=== PATIENT | male | born 1930 | race Caucasian/White ===

== ENCOUNTER → 2019-03-14 | Outpatient (CLI) | payer MEDICARE ==
--- NOTE | 2019-03-14 15:13 | XR ---
EXAMINATION TYPE: XR chest 2V DATE OF EXAM: 03/14/2019 COMPARISON: NONE HISTORY: Pneumonia TECHNIQUE: Frontal and lateral views of the chest are obtained. FINDINGS: There is no focal air space opacity, pleural effusion, or pneumothorax seen. The cardiac silhouette size is within normal limits. Interstitium is prominent at the lung bases. Aorta is dens e. Prominent lung volume may be indicative of underlying COPD. There is bronchial wall thickening. Th e osseous structures are intact. IMPRESSION: Interstitial lung disease, correlate for bronchitis, reactive airways disease.
== END | disposition home or self-care (01) ==
LOC: RADXRMAIN 14:43
PROVIDERS: ATTEND Family Medicine
DX: J84.9 Interstitial pulmonary disease, unspecified (principal); J40 Bronchitis, not specified as acute or chronic
CPT/HCPCS: 71046

== ENCOUNTER → 2019-03-22 | Outpatient (CLI) | payer OTHER ==
[2019-03-22 17:14] LABS: African American GFR (CKD) >90 (>60 ml/min/1.73 sqM); Blood Urea Nitrogen 13 mg/dL (9-20)
--- NOTE | 2019-03-24 11:51 | CT ---
EXAMINATION TYPE: CT chest w con DATE OF EXAM: 03/22/2019 COMPARISON: Chest x-ray dated 03/14/2019 HISTORY: Pneumonia. CT DLP: 363.2 mGycm. Automated Exposure Control for Dose Reduction was Utilized. TECHNIQUE: CT scan of the thorax is performed following with IV Contrast, patient injected with 100m l mL of Isovue 300. FINDINGS: LUNGS: Peripheral basilar predominant reticular opacities and groundglass opacities are seen without current honeycombing. Interlobular septal thickening is seen throughout. 1.3 x 1.0 cm nodule is seen adjacent to the right lower lobe segmental pulmonary arteries and interlo bar fissure located in the right middle lobe on series 4 image 36. Given its location near the right infrahilar and appearance this could represent a prominent lymph node however pulmonary nodule is pos sible. There is no pleural effusion or pneumothorax seen. The tracheobronchial tree is patent. MEDIASTINUM: There are prominent mediastinal lymph nodes such as in the right paratracheal space nico uring 1.2 cm in short axis, and the left paratracheal space measuring 9 mm in short axis, in the subc arinal region measuring 1.3 cm in short axis, and possibly in the right infrahilar as discussed above .. The heart is enlarged. No pericardial effusion is seen. Small hiatal hernia is present. Moderate c oronary calcifications are noted. Ascending thoracic aorta is upper limits of normal size measuring 3 .8 cm. OTHER: Left upper pole renal cyst is incidentally seen. Moderate multilevel degenerative changes of t he spine are noted. IMPRESSION: 1. Right middle lobe pulmonary nodule versus infrahilar lymph node given multiple other prominent and mildly enlarged mediastinal lymph nodes. Short-term follow-up is recommended in 3 months to reassess this lesion. PET/CT or endobronchial biopsy could also be considered. 2. 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
== END | disposition home or self-care (01) ==
LOC: RADCTMAIN 16:28
PROVIDERS: ATTEND Physician Assistant
DX: J18.9 Pneumonia, unspecified organism (principal)
CPT/HCPCS: 36415; 71260; 82565; 84520

== ENCOUNTER → 2019-04-20 | Outpatient (CLI) | payer MEDICARE ==
--- NOTE | 2019-04-24 14:47 | PE ---
EXAMINATION TYPE: PET CT fusion skull to thigh DATE OF EXAM: 04/20/2019 COMPARISON: Chest CT dated 03/22/2019 HISTORY: Lung mass TECHNIQUE: Following the intravenous administration of 10.19 mCi of F-18 FDG, whole body images are performed from the skull base to the midthigh. Images are reviewed on the computer in the coronal, a xial, and sagittal planes. Reconstructed rotating images are created on independent workstation and reviewed on the computer. A localization and attenuation correction CT is performed in conjunction with the PET scan. SCAN: Initial FINDINGS: SKULL BASE AND NECK: No suspicious hypermetabolic uptake CHEST, MEDIASTINUM, AND HILAR REGION: There is a right paratracheal lymph node measuring 1.2 cm in sh ort axis on image 78 with a maximum SUV of 3.9. Subcentimeter right hilar lymph nodes have a maximum SUV of 6.0 and measure up to 7 mm. Nonenlarged infrahilar lymph nodes have a maximum SUV of 2.3. None nlarged left hilar lymph nodes measure up to 5 mm with a maximum SUV of 3.9 with infrahilar nodes natividad t are not enlarged having a maximum SUV of 3.6. The known right perihilar mass on image 94 and 93 measures approximately 1.2 x 1.4 cm and has a maxim um SUV of 1.76. ABDOMEN AND PELVIS: There is hypermetabolic activity throughout the urinary bladder, from excretion h owever there appears to be circumferential thickening urinary bladder anthony and correlation with urin alysis is recommended to exclude cystitis. Multifocal hypermetabolic uptake throughout the colon, including the cecum, is presumed to relate to physiologic activity and excretion. OSSEOUS STRUCTURES: No suspicious hypermetabolic activity. OTHER CT: Interstitial lung disease is seen with peripheral predominant fibrosis. Moderate coronary a rtery calcifications are again noted. Ascending thoracic aorta is upper limits of normal size measuri ng 3.8 cm. Paranasal sinuses and mastoid air cells are well aerated. Multilevel degenerative changes of the spine are seen throughout. Mild degenerative changes of the femoral acetabular joints. Small h iatal hernia. Spleen is upper limits of normal size measuring 13.6 cm in longitudinal dimension. Ecta aramis of the distal abdominal aorta measuring up to 2.6 cm in transverse dimension. Small periumbilical fat filled hernia. Circumferential urinary bladder wall thickening although incomplete distention is seen. Calcified adjacent probable mesenteric lymph node on image 191. Heterogenous prostate gland is seen. Some calcifications of the pancreas represents sequela of prior chronic pancreatitis. IMPRESSION: 1. Borderline mediastinal lymph node FDG avidity with the majority of the lymph nodes having SUVs bet ween 2.3-3.9, equivocal and possibly reactive. However there is a solitary right infrahilar lymph nod e having a maximum SUV of 6.0 although nonenlarged. Bronchoscopy could be performed for this abnormal finding. 2. No hypermetabolic activity within the right perihilar well-circumscribed mass, therefore likely a perivascular lymph node. 3. Circumferential urinary bladder wall thickening raising suspicion for cystitis. Correlate with uri nalysis. 4. Interstitial lung disease with a pattern again of NSIP.
== END | disposition home or self-care (01) ==
LOC: RADPETMAIN 10:11
PROVIDERS: ATTEND Internal Medicine Critical Care Medicine
DX: J84.9 Interstitial pulmonary disease, unspecified (principal); R91.8 Other nonspecific abnormal finding of lung field; N32.89 Other specified disorders of bladder
CPT/HCPCS: 78815; A9552

== ENCOUNTER → 2019-04-23 | Outpatient (CLI) | payer MEDICARE | LOC: CPPFTMAIN 14:18 | PROVIDERS: ATTEND Internal Medicine Critical Care Medicine | DX: J98.8 Other specified respiratory disorders (principal) | CPT/HCPCS: 94060; 94726; 94729 ==

== ENCOUNTER → 2019-06-19 | Outpatient (CLI) | payer MEDICARE ==
[2019-06-20 05:23] LABS: African American GFR (CKD) 62.2 (60.0-200.0); Anion Gap 9.5 mmol/L (4.00-12.00); BUN/Creat Ratio 19.17 Ratio (12.00-20.00); Calcium 8.8 mg/dL (8.7-10.3); Carbon Dioxide 24.5 mmol/L (21.6-31.8); Potassium 4.2 mmol/L (3.5-5.5); Total Bilirubin 0.5 mg/dL (0.3-1.2)
== END | disposition home or self-care (01) ==
LOC: LABWHC1 14:46
PROVIDERS: ATTEND Internal Medicine Interventional Cardiology
DX: R07.89 Other chest pain (principal)
CPT/HCPCS: 36415; 80053

== ENCOUNTER → 2019-07-05 | Outpatient (CLI) | payer MEDICARE ==
[2019-07-05 11:44] LABS: HCT 42.1 % (39.0-53.0); HGB 13.8 gm/dL (13.0-17.5); MCH 31.8 pg (25.0-35.0); MCHC 32.9 g/dL (31.0-37.0); MCV 96.8 fL (80.0-100.0); Mean Platelet Volume 7.8; Platelet Count 127 k/uL (150-450); RBC 4.35 m/uL (4.30-5.90); RDW 13.5 % (11.5-15.5); WBC 5.9 k/uL (3.8-10.6)
[2019-07-05 11:59] LABS: Potassium 4.8 mmol/L (3.5-5.1)
== END | disposition home or self-care (01) ==
LOC: LABPAT 10:10
PROVIDERS: ATTEND Internal Medicine Interventional Cardiology
DX: Z01.812 Encounter for preprocedural laboratory examination (principal); I20.9 Angina pectoris, unspecified
CPT/HCPCS: 36415; 80051; 82565; 84520; 85027

== ENCOUNTER 2019-07-11 10:49 | Day surgery (SDC) | payer MEDICARE ==
[~2019-07-11 10:49] MED LIST: ALPRAZolam 0.25 MG TAB PO PRN; ALPRAZolam 0.5 MG TAB PO PRN; ASPIRIN 325 MG TAB PO ONE; ATORVASTATIN 80 MG TAB PO ONE; NITROGLYCERIN SL TABS 0.4 MG TAB SUBLINGUAL PRN; SODIUM CHLORIDE 0.9% 1,000 ML in EMPTY BAG 1 BAG IV ONE
[2019-07-11] MEDS ORDERED: VERAPAMIL 2.5 MG/ML 2 ML AMP ONE (11:50)
[2019-07-11] MEDS ORDERED: LIDOCAINE 1% INJ 10MG/ML (20 ML MDV) ONE (11:50)
[2019-07-11] MEDS ORDERED: fentaNYL (PF) 50 MCG/ML 2 ML AMP ONE (11:51)
[2019-07-11] MEDS ORDERED: HEPARIN SODIUM 1,000 UN/ML (10ML VL) ONE (12:06)
[2019-07-11] MEDS ORDERED: fentaNYL (PF) 50 MCG/ML 2 ML AMP IVP ONE (12:08)
[2019-07-11] MEDS ORDERED: LIDOCAINE 1% INJ 10MG/ML (20 ML MDV) SQ ONE (12:10)
[2019-07-11] MEDS ORDERED: VERAPAMIL SYRINGE (5 MG/10 ML) INTRAARTER ONE (12:11)
[2019-07-11] MEDS ORDERED: CLOPIDOGREL 75 MG TAB ONE (12:26)
[2019-07-11] MEDS ORDERED: BIVALIRUDIN BOLUS 250 MG/50 ML IV ONE (12:27)
[2019-07-11] MEDS ORDERED: CLOPIDOGREL 75 MG TAB PO ONE (12:28)
[2019-07-11] MEDS ORDERED: BIVALIRUDIN 250 MG in SODIUM CHLORIDE 0.9% 50 ML IV ONE (12:29)
[2019-07-11] MEDS ORDERED: NITROGLYCERIN 1000MCG/10ML SYRINGE INTRACORON ONE (12:34)
[2019-07-11] MEDS ORDERED: IOPAMIDOL-370 125ML BTL INJ ONE (12:35)
[2019-07-11] MEDS ORDERED: IOPAMIDOL-370 100ML BTL INJ ONE (12:55)
[2019-07-11] MEDS ORDERED: ONDANSETRON 4 MG/2 ML VIAL ONE (12:57)
[2019-07-11] MEDS ORDERED: ONDANSETRON 4 MG/2 ML VIAL IVP ONE (13:03)
[2019-07-11] MEDS ORDERED: ATROPINE SULFATE 0.1 MG/ML 10ML SYRINGE IV PRN (13:13)
[2019-07-11] MEDS ORDERED: NITROGLYCERIN SL TABS 0.4 MG TAB SUBLINGUAL PRN (13:13)
[2019-07-11] MEDS ORDERED: ZOLPIDEM 5 MG TAB PO PRN (13:13)
[2019-07-11] MEDS ORDERED: RX INFO: IV CONTRAST WAS GIVEN 1 EACH MISC MISCELLANE PRN (13:13)
[2019-07-11] MEDS ORDERED: MAG HYDROX/AL HYDROX/SIMETH 30 ML CUP PO PRN (13:13)
[2019-07-11] MEDS ORDERED: SODIUM CHLORIDE 0.9% 1,000 ML IV SCH (13:15)
--- NOTE | 2019-07-11 13:27 | CC ---
CARDIAC CATHETERIZATION REPORT Mr. Capps is an 89-year-old male who is quite active who has been complaining of of progressive dyspnea on exertion, exertional chest discomfort, underwent a myocardial perfusion imaging that revealed evidence of inducible ischemia. In view of that, recommendation was made regarding cardiac catheterization. The procedure as well as the risks and the complications were discussed with the patient who is in full understanding and agreement. PROCEDURE: Patient was brought to laboratory manager in a fasting semi-sedated state after receiving fentanyl and Benadryl and achieving moderate conscious sedated state. Using Xylocaine anesthesia in the Seldinger technique, a 6-Paraguayan sheath was introduced in the right radial artery. Selective right and left coronary angiography was performed using 5- [place] 3.5 bend right and left Apolinar catheter. Multiple views of the coronary artery including hemiaxial views were obtained. Following that, 5-[place]ayan tight pigtail catheter was introduced in the left ventricle and pressures were calculated. Following that, catheters were removed. Images were reviewed. FINDINGS: LEFT MAIN: This is a large-sized vessel, bifurcating left circumflex, left anterior descending artery. Left main coronary artery has 10% to 20% plaque without any evidence of high-grade stenosis. LEFT ANTERIOR DESCENDING ARTERY: This is a large-sized vessel reaching to the apex with a wraparound apex segment giving collaterals to the distal RCA. The left anterior descending artery proximally has a 90% stenosis, in the mid segment. after the takeoff of diagonal branch, there is a 95% stenosis. The distal segment has a 40% to 50% plaque. The rest of the vessel has no high-grade stenosis. LEFT CIRCUMFLEX: This vessel is totally occluded after takeoff of a large obtuse marginal branch. There is minimal antegrade flow. RIGHT CORONARY ARTERY: This vessel is totally occluded proximally with bridging collaterals filling the distal RCA in a slow flow pattern. LEFT VENTRICULOGRAM: Left ventriculogram is not performed. HEMODYNAMICS: There was no gradient across the aortic valve. The left ventricular end- diastolic pressure was about 16 to 20 mmHg. CONCLUSION: 1. Chronically occluded right coronary artery and subtotally occluded left circumflex. 2. Severe stenosis involving the proximal and mid left anterior descending artery. 3. Mildly elevated left ventricular end-diastolic pressure. RECOMMENDATION: In view of finding anatomy, I discussed the findings in detail with the patient. In view of his age and the risk for surgical intervention, I have recommend to attempt angioplasty and stenting of the LAD. If he persists having symptoms, then attempt to recanalize the right coronary artery and the LCX. Those findings and recommendation were discussed with the patient as well as the risks and complications and is in full understanding and agreement. CARMELLA / SUNDAR: [id number] / MTDD
--- NOTE | 2019-07-11 13:36 | PTCA ---
PERCUTANEOUSTRANS CORORONARY ANGIOGRAPHY Mr. Capps is an 89-year-old male who presented with symptoms of worsening dyspnea on exertion, chest discomfort, had an abnormal myocardial perfusion imaging, underwent cardiac catheterization, was found to have chronic occluded right coronary artery, subtotally occluded left circumflex and critical stenosis in the LAD. Recommendation was made regarding angioplasty and stenting. The procedure as well as the risks and the complications were discussed with the patient who is in full understanding and agreement. PROCEDURE: A 6-Ukrainian EBU 3.75 guiding catheter introduced in the system. After cannulating the left main, a 0.014 balanced medium weight J-wire was advanced across the lesion, positioned distally. Then a 2.5 x 12 mm Trek balloon was advanced and 2 inflations maximum of 10 atmospheres were done at the mid lesion. Following that, the balloon was removed and a 3.0 x 15 mm Xience Pauly stent was deployed postdilated at 16 atmospheres. Following that the balloon was removed and a 3.25 x 15 mm Xience Pauly stent was deployed proximally, postdilated 16 atmospheres. Following that the balloon was removed and a 3.5 x 12 mm NC Trek balloon was advanced in the proximal stent and dilated at 14 atmospheres. After the last inflation, after appropriate wait, the balloon and the guidewire were withdrawn back in the guiding catheter. Images were obtained, repeated. Those images reveal stable successful stenting. At that point, the guiding catheter, the balloon and the guidewire were removed. The sheath was removed. Hemostasis was obtained with deployment of a TR band. There was no immediate complication. Patient was returned to his room in stable condition. Of note, the patient received Angiomax per protocol as well as oral loading dose of Effient. He had chest discomfort with mild EKG changes that improved at the end of the procedure. RESULTS: 1. Successful stenting of the proximal left anterior descending artery with reduction in stenosis from 90% to 0%. 2. Successful stenting of the mid left anterior descending artery with reduction in stenosis from 95% to 0%. RECOMMENDATION: Patient will be continued on aspirin, Plavix and statin. His symptoms will be followed and depending on his symptoms, the decision will be made regarding the need to recanalize the left circumflex. Those findings and recommendations were discussed with the patient and his family who are in full understanding and agreement. Duration of procedure is 50 minutes. MMODL / IJN: [id number] /
[2019-07-11 16:53] VITALS: BMI 32.1
[2019-07-11] MEDS: METOPROLOL TARTRATE 25 MG TAB PO SCH (20:06)
[2019-07-12 05:55] VITALS: RESP 16; TEMP 97.7
[2019-07-12 06:55] LABS: Calcium 8.5 mg/dL (8.4-10.2); Potassium 4.5 mmol/L (3.5-5.1)
--- NOTE | 2019-07-12 07:38 | PN ---
PROGRESS NOTE Mr. Capps is an 89-year-old male with a history of hypertension, hyperlipidemia, who presented with symptoms of progressive dyspnea on exertion and chest discomfort with a normal stress test. Underwent cardiac catheterization, was found to have subtotally occluded left circumflex, totally occluded right coronary artery with critical stenosis in the LAD, underwent stenting of the LAD in 2 segments. He is doing well this morning. He is ambulating without difficulty. He feels that his breathing is better. He denies any dizziness or palpitation. He denies any nausea. He continued on aspirin once a day, Plavix 75 mg daily, Lipitor 40 mg daily, isosorbide mononitrate 30 mg daily, metoprolol tartrate 25 mg twice a day, and Flomax 0.4 mg daily. PHYSICAL EXAMINATION: Blood pressure 125/59 with the heart rate in the 60s. LUNGS: Clear. HEART: Regular rate and rhythm. S1, S2. No S3 with a systolic murmur heard at the base. No diastolic murmur. No rub. ABDOMEN: Soft, nontender. EXTREMITIES: No edema. Right radial pulse intact. LAB DATA: Lab data revealed BUN and creatinine 17 and 0.96, potassium 4.5. IMPRESSION: 1. Triple-vessel coronary artery disease. 2. Status post stenting of the left anterior descending artery. 3. Hyperlipidemia. 4. History of pulmonary fibrosis. RECOMMENDATION: Patient will be discharged home today and followed clinically. If he has recurrent symptoms, then attempt to recanalize the left circumflex will be undertaken. MMODL / IJN: [id number] /
[2019-07-12] MEDS: METOPROLOL TARTRATE 25 MG TAB PO SCH (08:07)
[2019-07-12 08:12] VITALS: BP 104/55; PULSE 62
[2019-07-12] MEDS ORDERED: ISOSORBIDE MONONITRATE ER 30 MG TAB.ER.24H PO SCH (09:00)
[2019-07-12] MEDS ORDERED: ASPIRIN 81 MG PO SCH (09:00)
[2019-07-12] MEDS ORDERED: CLOPIDOGREL 75 MG TAB PO SCH (09:00)
[2019-07-12] MEDS ORDERED: TAMSULOSIN 0.4 MG CAP.ER.24H PO SCH (09:00)
[2019-07-12] MEDS ORDERED: ATORVASTATIN 40 MG TAB PO SCH (21:00)
== END 2019-07-12 09:16 | disposition home or self-care (01) ==
LOC: CATHCVL 10:49 → 3SCARD 16:03 → CATHCVL 07-12 09:16
PROVIDERS: ATTEND Internal Medicine Interventional Cardiology
DX: I25.110 Atherosclerotic heart disease of native coronary artery with unstable angina pectoris (principal); I25.82 Chronic total occlusion of coronary artery; I10 Essential (primary) hypertension; R94.39 Abnormal result of other cardiovascular function study; Z79.82 Long term (current) use of aspirin; Z79.899 Other long term (current) drug therapy; Z88.2 Allergy status to sulfonamides; E78.5 Hyperlipidemia, unspecified; Z95.5 Presence of coronary angioplasty implant and graft
CPT/HCPCS: 93458; 85347; 80048; C9600; C1769; C1887; C1725 ×2; C1874; J2405; J2001; J3010; J0583; Q9967 ×2

== ENCOUNTER → 2019-09-13 | Outpatient (CLI) | payer MEDICARE ==
[2019-09-13 15:37] LABS: HCT 41.2 % (39.0-53.0); HGB 14.2 gm/dL (13.0-17.5); MCH 32.4 pg (25.0-35.0); MCHC 34.4 g/dL (31.0-37.0); MCV 94.2 fL (80.0-100.0); Mean Platelet Volume 9.4; Platelet Count 126 k/uL (150-450); RBC 4.38 m/uL (4.30-5.90); WBC 5.9 k/uL (3.8-10.6)
[2019-09-13 23:28] LABS: African American GFR (CKD) 62.2 (60.0-200.0); Anion Gap 8.1 mmol/L (4.00-12.00); BUN/Creat Ratio 16.67 Ratio (12.00-20.00); Calcium 8.4 mg/dL (8.7-10.3); Carbon Dioxide 23.9 mmol/L (21.6-31.8); Non-African American GFR(CKD) 53.7 (60.0-200.0); Potassium 5.5 mmol/L (3.5-5.5)
== END | disposition home or self-care (01) ==
LOC: LABWHC1 14:14
PROVIDERS: ATTEND Internal Medicine Interventional Cardiology
DX: I20.9 Angina pectoris, unspecified (principal)
CPT/HCPCS: 36415; 80048; 85027

== ENCOUNTER → 2020-03-17 | Outpatient (CLI) | payer MEDICARE | END | disposition home or self-care (01) | LOC: LABWHC1 13:31 | PROVIDERS: ATTEND Internal Medicine | DX: Z01.818 Encounter for other preprocedural examination (principal); Z11.59 Encounter for screening for other viral diseases; I25.10 Atherosclerotic heart disease of native coronary artery without angina pectoris ==

== ENCOUNTER → 2020-03-20 | Outpatient (CLI) | payer MEDICARE | END | disposition home or self-care (01) | LOC: LABWHC1 08:55 | PROVIDERS: ATTEND Internal Medicine | DX: Z01.818 Encounter for other preprocedural examination (principal); I25.10 Atherosclerotic heart disease of native coronary artery without angina pectoris; Z11.59 Encounter for screening for other viral diseases ==

== ENCOUNTER → 2020-05-11 | Outpatient (CLI) | payer MEDICARE | END | disposition home or self-care (01) | LOC: LABWHC1 10:18 | PROVIDERS: ATTEND Family Medicine | DX: Z20.828 Contact with and (suspected) exposure to other viral communicable diseases (principal) | CPT/HCPCS: U0003; C9803 ==

== ENCOUNTER → 2020-08-28 | Outpatient (CLI) | payer MEDICARE ==
--- NOTE | 2020-08-28 11:23 | XR ---
EXAMINATION TYPE: XR chest 2V DATE OF EXAM: 08/28/2020 COMPARISON: Prior chest x-ray 03/14/2019 HISTORY: Pneumonia, J 18.9 TECHNIQUE: Frontal and lateral views of the chest are obtained. FINDINGS: There is no pleural effusion or pneumothorax evident The cardiac silhouette size is within normal limits. There are prominent lung volumes with flattening the hemidiaphragms suggesting underl sonia COPD. Coronary artery calcification is present. Patchy bibasilar increased attenuation is presen t which may be related to patient's interstitial lung disease. Aorta is dense. The osseous structures are intact. IMPRESSION: Correlate for possible pneumonia. Coronary artery disease. There is interstitial lung di sease.
== END | disposition home or self-care (01) ==
LOC: RADXRMAIN 09:46
PROVIDERS: ATTEND Nurse Practitioner
DX: J84.9 Interstitial pulmonary disease, unspecified (principal); I25.10 Atherosclerotic heart disease of native coronary artery without angina pectoris
CPT/HCPCS: 71046

== ENCOUNTER 2020-09-07 11:54 | Emergency (ER) | payer MEDICARE ==
[2020-09-07 12:01] VITALS: TEMP 97.9
--- NOTE | 2020-09-07 12:29 | ED ---
General Adult HPI - General Chief complaint: Shortness of Breath Stated complaint: pneumonia-sent by PCP Time Seen by Provider: 09/07/20 12:07 Source: patient, RN notes reviewed, old records reviewed Mode of arrival: ambulatory Limitations: no limitations - History of Present Illness Initial comments: 89-year-old male presented for evaluation of cough, mild dyspnea. Patient was seen by primary care physician and sent to the emergency department for e valuation. He's been sick for approximately 10 days. He's had a nonproductive cough and mild dyspnea. No central chest pain. No fever. No lower extremity pain or swelling. He has a history of CAD status post stenting but no previous history of congestive heart failure. - Related Data Home Medications Medication Instructions Recorded Confirmed Aspirin [Adult Low Dose Aspirin EC] 81 mg PO DAILY 07/09/19 09/07/20 Isosorbide Mononitrate [Isosorbide 30 mg PO DAILY 07/09/19 09/07/20 Mononitrate ER] Lutein (Unknown Dose) 1 tab PO DAILY 07/09/19 09/07/20 Metoprolol Tartrate [Lopressor] 25 mg PO BID 07/09/19 09/07/20 Amoxicillin/Potassium Clav 1 tab PO Q12HR 09/07/20 09/07/20 [Augmentin 875-125 Tablet] Ascorbic Acid [Vitamin C] 1,000 mg PO DAILY 09/07/20 09/07/20 Atorvastatin Calcium [Lipitor] 80 mg PO HS 09/07/20 09/07/20 Cyanocobalamin [Vitamin B-12] 500 mcg PO DAILY 09/07/20 09/07/20 Gabapentin [Neurontin] 100 mg PO DAILY 09/07/20 09/07/20 Omeprazole 20 mg PO DAILY 09/07/20 09/07/20 Ubidecarenone [Co Q-10] 100 mg PO DAILY 09/07/20 09/07/20 Zinc 100 mg PO DAILY 09/07/20 09/07/20 Previous Rx's Medication Instructions Recorded Clopidogrel [Plavix] 75 mg PO DAILY #90 tab 07/12/19 Nitroglycerin Sl Tabs [Nitrostat] 0.4 mg SUBLINGUAL Q5M PRN #25 tab 07/12/19 predniSONE 50 mg PO DAILY #5 tab 09/07/20 Allergies Allergy/AdvReac Type Severity Reaction Status Date / Time ragweed pollen Allergy Swelling Verified 09/07/20 13:08 eyes, runny nose Sulfa (Sulfonamide Allergy Rash/Hives Verified 09/07/20 13:08 Antibiotics) Review of Systems ROS Statement: Those systems with pertinent positive or pertinent negative responses have been documented in the HPI. ROS Other: All systems not noted in ROS Statement are negative. Past Medical History Past Medical History: Cancer, Chest Pain / Angina, Hearing Disorder / Deafness, Respiratory Disorder Additional Past Medical History / Comment(s): Recently told has Pulmonary Fibrosis. Having CP occ, shortness of breath. Hx CA skin, squamous cell; bl adder control prob. History of Any Multi-Drug Resistant Organisms: None Reported Past Surgical History: Heart Catheterization With Stent, Joint Replacement, Orthopedic Surgery Additional Past Surgical History / Comment(s): Mohs procedure for skin CA. Petr Total Knees. Petr thumbs replaced. stent x 2 to LAD 07/11/19 Past Anesthesia/Blood Transfusion Reactions: Postoperative Nausea & Vomiting (PONV) Additional Past Anesthesia/Blood Transfusion Reaction / Comment(s): No blood transfusion Date of Last Stent Placement:: 07/11/19 Past Alcohol Use History: Occasional Past Drug Use History: None Reported - Past Family History Mother Family Medical History: No Reported History General Exam Limitations: no limitations General appearance: alert, in no apparent distress Head exam: Present: atraumatic, normocephalic Eye exam: Present: normal appearance, PERRL ENT exam: Present: normal exam Neck exam: Present: normal inspection. Absent: tenderness, meningismus Respiratory exam: Present: wheezes (Bronchospastic cough). Absent: respiratory distress, rhonchi Cardiovascular Exam: Present: normal rhythm, bradycardia GI/Abdominal exam: Present: soft. Absent: distended, tenderness, guarding Extremities exam: Present: normal inspection, normal capillary refill Neurological exam: Present: alert, oriented X3, CN II-XII intact. Absent: motor sensory deficit Psychiatric exam: Present: normal affect, normal mood Skin exam: Present: warm, dry, intact. Absent: cyanosis, diaphoretic Course Vital Signs 09/07/20 09/07/20 09/07/20 11:59 12:30 13:57 Temperature 97.9 F Pulse Rate 59 L 61 Respiratory 20 20 18 Rate Blood Pressure 115/67 101/68 O2 Sat by Pulse 100 97 Oximetry EKG Findings - EKG Comments: EKG Findings:: EKG: Sinus bradycardia low-voltage, rate 49, UT interval 168, QRS duration 84, QTC 364, no ST segment elevation Medical Decision Making - Medical Decision Making Well-appearing 89-year-old with stable vitals presenting for evaluation from the primary care physician, concern for pneumonia. He has been sick for approximately 10 days rate no known exposure to coronavirus. Patient afebrile, not hypoxic, bronchospastic cough with minimal wheezing. History of COPD. He has a normal white blood cell count, stable he will, normal CMP, negative troponin, negative BNP, negative for coronavirus testing. Overall well- appearing and eager for discharge. No respiratory distress. He has been on antibiotics and will continue these antibiotics. Additionally he will be prescribed a 5 day course of prednisone for COPD exacerbation. - Lab Data Result diagrams: 09/07/20 12:28 09/07/20 12: Lab Results 09/07/20 09/07/20 09/07/20 Range/Units 12:28 12:28 12:28 WBC 6.0 (3.8-10.6) k/uL RBC 4.25 L (4.30-5.90) m/uL Hgb 13.7 (13.0-17.5) gm/dL Hct 40.7 (39.0-53.0) % MCV 95.6 (80.0-100.0) fL MCH 32.2 (25.0-35.0) pg MCHC 33.7 (31.0-37.0) g/dL RDW 13.3 (11.5-15.5) % Plt Count 117 L (150-450) k/uL MPV 8.4 Neutrophils % 59 % Lymphocytes % 28 % Monocytes % 6 % Eosinophils % 3 % Basophils % 1 % Neutrophils # 3.6 (1.3-7.7) k/uL Lymphocytes # 1.7 (1.0-4.8) k/uL Monocytes # 0.4 (0-1.0) k/uL Eosinophils # 0.2 (0-0.7) k/uL Basophils # 0.1 (0-0.2) k/uL PT 10.8 (9.0-12.0) sec INR 1.0 (<1.2) APTT 25.4 (22.0-30.0) sec Sodium 139 (137-145) mmol/L Potassium 4.8 (3.5-5.1) mmol/L Chloride 107 (98-107) mmol/L Carbon Dioxide 28 (22-30) mmol/L Anion Gap 4 mmol/L BUN 16 (9-20) mg/dL Creatinine 0.85 (0.66-1.25) mg/dL Est GFR (CKD-EPI)AfAm 89 (>60 ml/min/1.73 sqM) Est GFR (CKD-EPI)NonAf 77 (>60 ml/min/1.73 sqM) Glucose 107 H (74-99) mg/dL Plasma Lactic Acid Erickson (0.7-2.0) mmol/L Calcium 8.5 (8.4-10.2) mg/dL Total Bilirubin 0.7 (0.2-1.3) mg/dL AST 44 (17-59) U/L ALT 58 H (4-49) U/L Alkaline Phosphatase 127 H (38-126) U/L Troponin I (0.000-0.034) ng/mL NT-Pro-B Natriuret Pep pg/mL Total Protein 6.2 L (6.3-8.2) g/dL Albumin 3.6 (3.5-5.0) g/dL Coronavirus (PCR) (Not Detectd) 09/07/20 09/07/20 09/07/20 Range/Units 12:28 12:28 12:28 WBC (3.8-10.6) k/uL RBC (4.30-5.90) m/uL Hgb (13.0-17.5) gm/dL Hct (39.0-53.0) % MCV (80.0-100.0) fL MCH (25.0-35.0) pg MCHC (31.0-37.0) g/dL RDW (11.5-15.5) % Plt Count (150-450) k/uL MPV Neutrophils % % Lymphocytes % % Monocytes % % Eosinophils % % Basophils % % Neutrophils # (1.3-7.7) k/uL Lymphocytes # (1.0-4.8) k/uL Monocytes # (0-1.0) k/uL Eosinophils # (0-0.7) k/uL Basophils # (0-0.2) k/uL PT (9.0-12.0) sec INR (<1.2) APTT (22.0-30.0) sec Sodium (137-145) mmol/L Potassium (3.5-5.1) mmol/L Chloride (98-107) mmol/L Carbon Dioxide (22-30) mmol/L Anion Gap mmol/L BUN (9-20) mg/dL Creatinine (0.66-1.25) mg/dL Est GFR (CKD-EPI)AfAm (>60 ml/min/1.73 sqM) Est GFR (CKD-EPI)NonAf (>60 ml/min/1.73 sqM) Glucose (74-99) mg/dL Plasma Lactic Acid Erickson 0.8 (0.7-2.0) mmol/L Calcium (8.4-10.2) mg/dL Total Bilirubin (0.2-1.3) mg/dL AST (17-59) U/L ALT (4-49) U/L Alkaline Phosphatase (38-126) U/L Troponin I <0.012 (0.000-0.034) ng/mL NT-Pro-B Natriuret Pep 224 pg/mL Total Protein (6.3-8.2) g/dL Albumin (3.5-5.0) g/dL Coronavirus (PCR) (Not Detectd) 09/07/20 Range/Units 13:15 WBC (3.8-10.6) k/uL RBC (4.30-5.90) m/uL Hgb (13.0-17.5) gm/dL Hct (39.0-53.0) % MCV (80.0-100.0) fL MCH (25.0-35.0) pg MCHC (31.0-37.0) g/dL RDW (11.5-15.5) % Plt Count (150-450) k/uL MPV Neutrophils % % Lymphocytes % % Monocytes % % Eosinophils % % Basophils % % Neutrophils # (1.3-7.7) k/uL Lymphocytes # (1.0-4.8) k/uL Monocytes # (0-1.0) k/uL Eosinophils # (0-0.7) k/uL Basophils # (0-0.2) k/uL PT (9.0-12.0) sec INR (<1.2) APTT (22.0-30.0) sec Sodium (137-145) mmol/L Potassium (3.5-5.1) mmol/L Chloride (98-107) mmol/L Carbon Dioxide (22-30) mmol/L Anion Gap mmol/L BUN (9-20) mg/dL Creatinine (0.66-1.25) mg/dL Est GFR (CKD-EPI)AfAm (>60 ml/min/1.73 sqM) Est GFR (CKD-EPI)NonAf (>60 ml/min/1.73 sqM) Glucose (74-99) mg/dL Plasma Lactic Acid Erickson (0.7-2.0) mmol/L Calcium (8.4-10.2) mg/dL Total Bilirubin (0.2-1.3) mg/dL AST (17-59) U/L ALT (4-49) U/L Alkaline Phosphatase (38-126) U/L Troponin I (0.000-0.034) ng/mL NT-Pro-B Natriuret Pep pg/mL Total Protein (6.3-8.2) g/dL Albumin (3.5-5.0) g/dL Coronavirus (PCR) Not Detected (Not Detectd) Disposition Clinical Impression: Acute exacerbation of chronic obstructive pulmonary disease Disposition: HOME SELF-CARE Condition: Fair Instructions (If sedation given, give patient instructions): COPD (Chronic Obstructive Pulmonary Disease) (ED) Prescriptions: predniSONE 50 mg PO DAILY #5 tab Is patient prescribed a controlled substance at d/c from ED?: No Referrals: Matthew Goodwin MD [Primary Care Provider] - 1-2 days Time of Disposition: 14:01
[2020-09-07 12:39] LABS: Basophils # (A) 0.1 k/uL (0-0.2); Basophils % (A) 1 %; Eosinophils # (A) 0.2 k/uL (0-0.7); Eosinophils % (A) 3 %; HCT 40.7 % (39.0-53.0); HGB 13.7 gm/dL (13.0-17.5); Lymphocytes # (A) 1.7 k/uL (1.0-4.8); Lymphocytes % (A) 28 %; MCH 32.2 pg (25.0-35.0); MCHC 33.7 g/dL (31.0-37.0); MCV 95.6 fL (80.0-100.0); Mean Platelet Volume 8.4; Monocytes # (A) 0.4 k/uL (0-1.0); Monocytes % (A) 6 %; Neutrophils # (A) 3.6 k/uL (1.3-7.7); Neutrophils % (A) 59 %; Platelet Count 117 k/uL (150-450); RBC 4.25 m/uL (4.30-5.90); RDW 13.3 % (11.5-15.5)
--- NOTE | 2020-09-07 12:42 | XR ---
EXAMINATION TYPE: XR chest 2V DATE OF EXAM: 09/07/2020 COMPARISON: 08/28/2020 TECHNIQUE: PA and lateral views submitted. HISTORY: Difficulty breathing FINDINGS: Heart size is stable. Underlying COPD suspected and there is bibasilar subsegmental consolidation. No pleural effusion or pneumothorax. No overt failure. Hypertrophic and degenerative change of the spin e. IMPRESSION: 1. Basilar atelectasis favored over pneumonia correlate clinically.
[2020-09-07 12:51] LABS: Albumin 3.6 g/dL (3.5-5.0); Calcium 8.5 mg/dL (8.4-10.2); Potassium 4.8 mmol/L (3.5-5.1); Total Bilirubin 0.7 mg/dL (0.2-1.3); Total Protein 6.2 g/dL (6.3-8.2)
[2020-09-07 12:53] LABS: Partial Thromboplastin Time 25.4 sec (22.0-30.0); Prothrombin Time 10.8 sec (9.0-12.0)
[2020-09-07 13:58] VITALS: BP 101/68; PULSE 61; RESP 18
== END 2020-09-07 14:29 | disposition home or self-care (01) ==
LOC: EC 11:54
DX: J44.1 Chronic obstructive pulmonary disease with (acute) exacerbation (principal); R00.1 Bradycardia, unspecified; Z79.82 Long term (current) use of aspirin; Z88.2 Allergy status to sulfonamides; Z95.5 Presence of coronary angioplasty implant and graft; Z91.048 Other nonmedicinal substance allergy status; Z85.828 Personal history of other malignant neoplasm of skin; Z96.653 Presence of artificial knee joint, bilateral; Z96.693 Finger-joint replacement, bilateral; Z20.828 Contact with and (suspected) exposure to other viral communicable diseases
CPT/HCPCS: 36415; 71046; 80053; 83605; 83880; 84484; 85025; 85610; 85730; 87040; 87502; 87635; 93005; 99285

== ENCOUNTER → 2020-10-19 | Outpatient (CLI) | payer MEDICARE ==
--- NOTE | 2020-10-20 08:09 | XR ---
EXAMINATION TYPE: XR chest 2V DATE OF EXAM: 10/19/2020 COMPARISON: Chest x-ray 09/07/2020 HISTORY: R06.09 TECHNIQUE: Frontal and lateral views of the chest are obtained. FINDINGS: Interstitium is increased. Patchy bibasilar density is noted. No evident pneumothorax or p leural effusion. Cardiac mediastinal silhouette shows a similar appearance. IMPRESSION: Correlate for pneumonia or interstitial edema.
== END | disposition home or self-care (01) ==
LOC: RADXRMAIN 15:27
PROVIDERS: ATTEND Nurse Practitioner
DX: R06.09 Other forms of dyspnea (principal)
CPT/HCPCS: 71046

== ENCOUNTER → 2020-11-19 | Outpatient (CLI) | payer MEDICARE ==
--- NOTE | 2020-11-19 10:14 | ECHOF ---
Referral Reason:R07.89 Atypical chest pain MEASUREMENTS -------- HEIGHT: 165.1 cm WEIGHT: 81.6 kg BP: IVSd: 1.2 cm (0.6 - 1.1) LVIDd: 3.8 cm (3.9 - 5.3) LVPWd: 1.4 cm (0.6 - 1.1) IVSs: 1.7 cm LVIDs: 2.0 cm LVPWs: 1.7 cm LAESV Index (A-L): 19.28 ml/m Ao Diam: 3.4 cm (2.0 - 3.7) AV Cusp: 2.0 cm (1.5 - 2.6) LA Diam: 3.9 cm (2.7 - 3.8) MV EXCURSION: 9.024 mm (> 18.000) MV EF SLOPE: 47 mm/s (70 - 150) EPSS: 0.8 cm MV E Prashanth: 0.63 m/s MV DecT: 226 ms MV A Prashanth: 0.78 m/s MV E/A Ratio: 0.81 AR PHT: 628 ms RAP: 5.00 mmHg RVSP: 33.70 mmHg FINDINGS -------- This was a technically good study. The left ventricular size is normal. There is mild concentric left ventricular hypertrophy. Overa ll left ventricular systolic function is normal with, an EF between 55 - 60 %. The diastolic fillin g pattern is normal for the age of the patient 6.96. The right ventricle is normal in size. The left atrial size is normal. Normal LA size by volume 22+/-6 ml/m2. The right atrial size is normal. Aortic valve is trileaflet and is mildly thickened. Trace amount of aortic regurgitation. The mitral valve is normal. Mild mitral regurgitation is present. The tricuspid valve appears structurally normal. Mild tricuspid regurgitation present. Right vent ricular systolic pressure is normal at < 35 mmHg. There is no pulmonic regurgitation present. The aortic root size is normal. Normal inferior vena cava with normal inspiratory collapse consistent with estimated right atrial pre ssure of 5 mmHg. There is no pericardial effusion. CONCLUSIONS -------- 1. The left ventricular size is normal. 2. There is mild concentric left ventricular hypertrophy. 3. Overall left ventricular systolic function is normal with, an EF between 55 - 60 %. 4. The diastolic filling pattern is normal for the age of the patient 6.96 5. Aortic valve is trileaflet and is mildly thickened. 6. Trace amount of aortic regurgitation. 7. Mild mitral regurgitation is present. 8. Mild tricuspid regurgitation present. 9. There is no pericardial effusion. APRN: Ashley Palmer RDCS
--- NOTE | 2020-11-19 14:30 | EST ---
EXERCISE STRESS AGE: 89 SEX: Male HT: 5'5" WT: 396 lbs. PROTOCOL: Lexiscan STAGE: N/A DURATION OF EXERCISE: 6 minutes HEART RATE REST: 89 BLOOD PRESSURE REST: 134/70 MAXIMUM HEART RATE ACHIEVED: 89 MAXIMUM BLOOD PRESSURE: 134/70 85% MPHR: 111 100% MPHR: 131 METS: N/A INDICATIONS: Chest pain. CLINICAL INFORMATION: Baseline EKG shows sinus rhythm, normal axis, normal intervals. Occasional PVCs. The patient was given intravenous Lexiscan as per protocol. Did not have chest pain or diagnostic ST-segment depression. CONCLUSIONS: 1. Negative stress test by EKG criteria. 2. Cardiolite portion of the stress test will be reported separately. MMODL / IJN: [id number] /
--- NOTE | 2020-11-20 07:31 | NM ---
EXAMINATION TYPE: NM stress cardiolite complete DATE OF EXAM: 11/19/2020 COMPARISON: NONE HISTORY: Chest pain TECHNIQUE: After the intravenous administration of 9.2 mCi Tc 99m Sestamibi - Rest images obtained 4 5 minutes post injection. The patient exercised using a SUNI protocol and 1 minute prior to peak e xercise was injected with 24.3 mCi Tc 99m Sestamibi - Stress images obtained 70 minutes post injectio n. FINDINGS: Targeted heart rate was achieved during performance of the study. Review of stress and rest SPECT rebekah ges demonstrates questionable small reversible defect involving the apical lateral myocardium.. [place] d analysis shows normal wall motion with an estimated left ventricular ejection fraction of 83 %. IMPRESSION: 1. Questionable small defect involving the apical lateral view. This could be artifactual, although s tress-induced reversible ischemia not excluded. Correlate clinically.
== END | disposition home or self-care (01) ==
LOC: RADNMMAIN 08:28
PROVIDERS: ATTEND Nurse Practitioner
DX: I08.1 Rheumatic disorders of both mitral and tricuspid valves (principal); R07.89 Other chest pain
CPT/HCPCS: 78452; 93017; 93306